=== PATIENT | female | born 1935 | race Caucasian/White ===

== ENCOUNTER → 2024-03-13 09:10 | Outpatient (REF) | payer OTHER, SELFPAY | LOC: REG 09:10 | PROVIDERS: ATTENDING PHYSICIAN Family Medicine; FAMILY PHYSICIAN Family Medicine | DX: M54.41 Lumbago with sciatica, right side (principal); G89.29 Other chronic pain; M25.551 Pain in right hip; M25.561 Pain in right knee | CPT/HCPCS: 72100; 73502; 73562 ==